=== PATIENT | male | born 1945 | race Caucasian/White ===

== ENCOUNTER 2018-01-26 11:17 | Inpatient (IN) | payer MEDICARE, OTHER ==
[~2018-01-26] VITALS: Ht 165.1 cm; Wt 66.5 kg
[~2018-01-26 11:17] MED LIST: AMOXICILLIN/CL875 MG PO; GLIPIZIDE ER5 M1 PO; LEVOTHROID125 MCG PO; LIPITOR80 M1 PO; METFORMIN1000 MG PO; OMEPRAZOLE20 M2 PO; PROAIR HFA IN
[2018-01-26 12:19] LABS: HEMATOCRIT 47.9 % (39.0-50.0); HEMOGLOBIN 16.6 g/dl (14.0-18.0); IMMATURE GRANULOCYTES 0.3 % (0.0-1.0); MEAN CORPUSCULAR HGB 30.9 pG CALC (26.0-32.0); MEAN CORPUSCULAR HGB CONC 34.7 g/L CALC (32.0-36.0); NEUT# 6.47 thou/uL (1.82-7.42); RED BLOOD COUNT 5.38 mill/uL (4.70-6.10); RED CELL DISTRI WIDTH 12.3 % (11.5-15.5)
[2018-01-26 12:35] LABS: ALBUMIN 4.1 g/dL (3.2-5.0); ALKALINE PHOSPHATASE 99 u/l (38-126); ANION GAP 19 (6-22 (CALC)); BILIRUBIN, TOTAL 0.8 mg/dL (0.0-1.4); BUN 15 mg/dL (8-23); BUN/CREATININE RATIO 18 (12-20 (CALC)); CARBON DIOXIDE 25 mmol/l (22-30); CHLORIDE 101 mmol/l (95-108); CREATININE 0.8 mg/dL (0.7-1.3); GFR > 60 ML/MIN (>=60 (CALC)); GFR FOR AFR.AMER. > 60 ML/MIN (>=60 (CALC)); POTASSIUM 4.3 mmol/l (3.5-5.1); SGOT/AST 41 u/l (19-48); SGPT/ALT 33 u/l (11-66); SODIUM 142 mmol/l (137-146)
[2018-01-26 13:01] LABS: INFLUENZA A POSITIVE (NONE DETECT); INFLUENZA B NONE DETECTED (NONE DETECT)
[2018-01-26] MEDS ORDERED: JANUVIA50 MG PO (14:27)
[2018-01-26] MEDS ORDERED: MULTI VIT PO (14:28)
[2018-01-26] MEDS ORDERED: LEVOTHYROXIN125 MCG PO (14:33)
[2018-01-26 15:00] VITALS: BP 131/81
[2018-01-26 16:10] VITALS: BP 146/75
[2018-01-26 16:41] LABS: URINE BILIRUBIN - DIPSTICK NEGATIVE (NEGATIVE); URINE BLOOD DIPSTICK LARGE (NEGATIVE); URINE COLOR YELLOW; URINE GLUCOSE - DIPSTICK 250 mg/dL (NEGATIVE); URINE KETONE 40 mg/dL (NEGATIVE); URINE LEUK ESTERASE NEGATIVE (NEGATIVE); URINE NITRITE - DIPSTICK NEGATIVE (Negative); URINE PH 5.5 (4.5-8.0); URINE PROTEIN - DIPSTICK NEGATIVE (NEG-TRACE); URINE SPECIFIC GRAVITY <=1.005; URINE UROBILINOGEN - DIPSTICK 0.2 E.U./dL (0.2)
[2018-01-26 17:00] LABS: URINE CLARITY CLEAR
[2018-01-26 17:09] LABS: URINE RBC TNTC RBC/hpf (0-5); URINE SQUAMOUS EPITHELIAL CELL FEW EPI/hpf (0-FEW)
[2018-01-26] MEDS ORDERED: OMEPRAZOLE20 M2 PO (18:35)
[2018-01-27] VITALS: BP 123/68
[2018-01-27 04:00] VITALS: BP 97/65
[2018-01-27 06:00] LABS: HEMATOCRIT 42.8 % (39.0-50.0); IMMATURE GRANULOCYTES 0.2 % (0.0-1.0); MEAN CELL VOLUME 91.6 fL CALC (80.0-100.0); MEAN CORPUSCULAR HGB CONC 33.9 g/L CALC (32.0-36.0); NEUT# 3.79 thou/uL (1.82-7.42); RED BLOOD COUNT 4.67 mill/uL (4.70-6.10); RED CELL DISTRI WIDTH 12.5 % (11.5-15.5)
[2018-01-27 06:07] LABS: HEMOGLOBIN 14.5 g/dl (14.0-18.0)
[2018-01-27 06:18] LABS: ALKALINE PHOSPHATASE 77 u/l (38-126); ANION GAP 14 (6-22 (CALC)); BILIRUBIN, TOTAL 0.6 mg/dL (0.0-1.4); BUN 11 mg/dL (8-23); BUN/CREATININE RATIO 18 (12-20 (CALC)); CARBON DIOXIDE 24 mmol/l (22-30); CHLORIDE 106 mmol/l (95-108); CREATININE 0.6 mg/dL (0.7-1.3); GFR > 60 ML/MIN (>=60 (CALC)); GFR FOR AFR.AMER. > 60 ML/MIN (>=60 (CALC)); POTASSIUM 4.1 mmol/l (3.5-5.1); SGOT/AST 37 u/l (19-48); SGPT/ALT 42 u/l (11-66); SODIUM 140 mmol/l (137-146)
[2018-01-27 06:19] LABS: ALBUMIN 3.1 g/dL (3.2-5.0); TOTAL PROTEIN 5.5 g/dL (6.3-8.2)
[2018-01-27 08:45] VITALS: BP 146/80
[2018-01-27 11:00] VITALS: BP 139/78
[2018-01-27 15:35] VITALS: BP 114/73
[2018-01-27 19:42] VITALS: BP 110/68
[2018-01-28 05:30] VITALS: BP 139/81
[2018-01-28 06:03] LABS: ANION GAP 14 (6-22 (CALC)); BUN 9 mg/dL (8-23); BUN/CREATININE RATIO 13 (12-20 (CALC)); CARBON DIOXIDE 24 mmol/l (22-30); CHLORIDE 106 mmol/l (95-108); CREATININE 0.7 mg/dL (0.7-1.3); GFR > 60 ML/MIN (>=60 (CALC)); GFR FOR AFR.AMER. > 60 ML/MIN (>=60 (CALC)); SODIUM 141 mmol/l (137-146)
[2018-01-28 06:04] LABS: HEMATOCRIT 40.9 % (39.0-50.0); HEMOGLOBIN 13.9 g/dl (14.0-18.0); IMMATURE GRANULOCYTES 0.3 % (0.0-1.0); MEAN CELL VOLUME 90.1 fL CALC (80.0-100.0); MEAN CORPUSCULAR HGB 30.6 pG CALC (26.0-32.0); NEUT# 2.16 thou/uL (1.82-7.42); RED BLOOD COUNT 4.54 mill/uL (4.70-6.10); RED CELL DISTRI WIDTH 12.4 % (11.5-15.5)
[2018-01-28 08:30] VITALS: BP 132/81
[2018-01-28 14:53] VITALS: BP 147/89
[2018-01-28 19:15] VITALS: BP 135/79
[2018-01-29 04:40] VITALS: BP 126/80
[2018-01-29 07:58] VITALS: BP 125/78
[2018-01-29] MEDS ORDERED: TAM75CAP PO (11:13)
[2018-01-29] MEDS ORDERED: ATORVASTATIN CA40 MG PO (11:13)
[2018-01-29] MEDS ORDERED: PROAIR HFA108 MCG/AC IN (11:26)
== END 2018-01-29 12:43 | disposition home or self-care (01) | DRG 195 ==
LOC: ED 11:17 → ED-I 13:16 → ED 13:52 → ICU 13:53 → MS2 01-27 10:30
PROVIDERS: Emergency Medicine; Nurse Practitioner Family; ADMIT Internal Medicine; ATTEND Internal Medicine
DX: J10.1 Influenza due to other identified influenza virus with other respiratory manifestations (principal); E11.9 Type 2 diabetes mellitus without complications; E03.9 Hypothyroidism, unspecified; I10 Essential (primary) hypertension; I25.2 Old myocardial infarction; Z87.01 Personal history of pneumonia (recurrent)

== ENCOUNTER 2018-12-01 14:25 | Emergency (ER) | payer MEDICARE, OTHER ==
[~2018-12-01] VITALS: Ht 165.1 cm; Wt 80.0 kg
[~2018-12-01 14:25] MED LIST changes: +ATORVASTATIN CA40 MG PO; +JANUVIA50 MG PO; +LEVOTHYROXIN125 MCG PO; +MULTI VIT PO; +PROAIR HFA108 MCG/AC IN; +TAM75CAP PO
[2018-12-01 15:57] VITALS: BP 160/80
== END 2018-12-01 15:57 | disposition home or self-care (01) ==
LOC: ED 14:25
DX: S20.212A Contusion of left front wall of thorax, initial encounter (principal); E11.9 Type 2 diabetes mellitus without complications; I10 Essential (primary) hypertension; E03.9 Hypothyroidism, unspecified; I25.2 Old myocardial infarction; V18.0XXA Pedal cycle driver injured in noncollision transport accident in nontraffic accident, initial encounter; Y93.55 Activity, bike riding; Y92.410 Unspecified street and highway as the place of occurrence of the external cause

== ENCOUNTER → 2019-01-26 | Outpatient (REF) | payer MEDICARE, OTHER ==
[2019-01-26 09:30] LABS: ANION GAP 13 (6-22 (CALC)); BUN 20 mg/dL (8-23); BUN/CREATININE RATIO 21 (12-20 (CALC)); CARBON DIOXIDE 30 mmol/l (22-30); CHLORIDE 101 mmol/l (95-108); GFR > 60 ML/MIN (>=60 (CALC)); GFR FOR AFR.AMER. > 60 ML/MIN (>=60 (CALC)); POTASSIUM 4.4 mmol/l (3.5-5.1); SODIUM 140 mmol/l (137-146)
[2019-01-26 09:57] LABS: TSH, 3RD GENERATION 3.73 uIU/mL (0.47 - 4.68)
== END | disposition home or self-care (01) ==
LOC: LAB 07:22
PROVIDERS: ATTEND Nurse Practitioner Family
DX: E11.9 Type 2 diabetes mellitus without complications (principal); R53.83 Other fatigue; E03.9 Hypothyroidism, unspecified

== ENCOUNTER 2021-12-17 17:42 | Emergency (ER) | payer MEDICARE, OTHER ==
[~2021-12-17] VITALS: Ht 165.1 cm; Wt 72.0 kg
[2021-12-17] MEDS ORDERED: ARICEPT PO (18:51)
[2021-12-17 19:11] LABS: HEMATOCRIT 46.2 % (39.0-50.0); HEMOGLOBIN 15.3 g/dl (14.0-18.0); IMMATURE GRANULOCYTES 0.3 % (0.0-5.0); MEAN CELL VOLUME 92.4 fL CALC (80.0-100.0); MEAN CORPUSCULAR HGB 30.6 pG CALC (26.0-32.0); MEAN CORPUSCULAR HGB CONC 33.1 g/dL CAL (32.0-36.0); NEUT# 3.87 thou/uL (1.82-7.42)
[2021-12-17 19:24] LABS: ALBUMIN 3.8 g/dL (3.2-5.0); ALKALINE PHOSPHATASE 61 u/l (38-126); ANION GAP 14 (6-22 (CALC)); BILIRUBIN, TOTAL 0.5 mg/dL (0.0-1.4); BUN 20 mg/dL (8-23); BUN/CREATININE RATIO 24 (12-20 (CALC)); CARBON DIOXIDE 26 mmol/l (22-30); CHLORIDE 100 mmol/l (95-108); CREATININE 0.8 mg/dL (0.7-1.3); GFR > 60 ML/MIN (>=60 (CALC)); GFR FOR AFR.AMER. > 60 ML/MIN (>=60 (CALC)); POTASSIUM 4.3 mmol/l (3.5-5.1); SGOT/AST 32 u/l (19-48); SODIUM 136 mmol/l (137-146)
[2021-12-17] MEDS ORDERED: PROMETHAZINE HY25 M1 PO (20:36)
[2021-12-17 20:40] VITALS: BP 174/74
== END 2021-12-17 20:52 | disposition home or self-care (01) ==
LOC: ED 17:42
PROVIDERS: Family Medicine
DX: R11.2 Nausea with vomiting, unspecified (principal); G91.9 Hydrocephalus, unspecified; I10 Essential (primary) hypertension; E11.9 Type 2 diabetes mellitus without complications; E03.9 Hypothyroidism, unspecified; I25.2 Old myocardial infarction; Z98.2 Presence of cerebrospinal fluid drainage device; Z79.84 Long term (current) use of oral hypoglycemic drugs

== ENCOUNTER 2022-01-23 00:49 | Emergency (ER) | payer MEDICARE, OTHER ==
[~2022-01-23] VITALS: Ht 165.1 cm; Wt 72.0 kg
[~2022-01-23 00:49] MED LIST changes: +ARICEPT PO; +METFORMIN HCL500 M2 PO; -METFORMIN1000 MG PO; +PROMETHAZINE HY25 M1 PO
[2022-01-23] MEDS ORDERED: CRESTOR5 MG PO (01:13)
[2022-01-23] MEDS ORDERED: TRESIBA100 UNIT/M SC (01:14)
[2022-01-23 01:38] LABS: HEMATOCRIT 45.1 % (39.0-50.0); IMMATURE GRANULOCYTES 0.8 % (0.0-5.0); MEAN CELL VOLUME 92.4 fL CALC (80.0-100.0); MEAN CORPUSCULAR HGB 30.7 pG CALC (26.0-32.0); MEAN CORPUSCULAR HGB CONC 33.3 g/dL CAL (32.0-36.0); NEUT# 2.82 thou/uL (1.82-7.42); RED BLOOD COUNT 4.88 mill/uL (4.70-6.10); RED CELL DISTRI WIDTH 12.9 % (11.5-15.5)
[2022-01-23 01:39] LABS: URINE BILIRUBIN - DIPSTICK NEGATIVE (NEGATIVE); URINE BLOOD DIPSTICK NEGATIVE (NEGATIVE); URINE COLOR YELLOW; URINE GLUCOSE - DIPSTICK 250 mg/dL (NEGATIVE); URINE KETONE NEGATIVE (NEGATIVE); URINE LEUK ESTERASE NEGATIVE (NEGATIVE); URINE PROTEIN - DIPSTICK NEGATIVE (NEG-TRACE); URINE SPECIFIC GRAVITY 1.025
[2022-01-23 01:47] LABS: URINE NITRITE - DIPSTICK NEGATIVE (Negative)
[2022-01-23 02:01] LABS: ALBUMIN 3.9 g/dL (3.2-5.0); ALKALINE PHOSPHATASE 72 u/l (38-126); ANION GAP 13 (6-22 (CALC)); BUN 15 mg/dL (8-23); BUN/CREATININE RATIO 18 (12-20 (CALC)); CARBON DIOXIDE 28 mmol/l (22-30); CHLORIDE 101 mmol/l (95-108); CREATININE 0.8 mg/dL (0.7-1.3); GFR > 60 ML/MIN (>=60 (CALC)); GFR FOR AFR.AMER. > 60 ML/MIN (>=60 (CALC)); POTASSIUM 4.4 mmol/l (3.5-5.1); SGOT/AST 30 u/l (19-48); SODIUM 137 mmol/l (137-146); TOTAL PROTEIN 6.6 g/dL (6.3-8.2)
[2022-01-23 02:02] LABS: BILIRUBIN, TOTAL 0.8 mg/dL (0.0-1.4)
[2022-01-23 02:13] LABS: MYOGLOBIN 58 ng/mL (0 - 121)
[2022-01-23 02:30] VITALS: BP 118/68
[2022-01-23] MEDS ORDERED: PROAIR HFA IN (02:36)
[2022-01-23] MEDS ORDERED: ROBITUSSIN AC10 ML PO (02:36)
[2022-01-23 02:45] VITALS: BP 132/78
[2022-01-23 03:00] VITALS: BP 125/66
[2022-01-23 03:15] VITALS: BP 138/72
[2022-01-23 03:27] VITALS: BP 138/72
--- NOTE | 2022-01-26 08:39 | NUR ---
PRELIMINARY BLOOD CULTURES SHOW GRAM POSITIVE COCCI IN 1/4 VIALS, LIKELY A CONTAMINANT. REPORTED TO DR AVILES. WILL F/U WITH FINALS.
== END 2022-01-23 03:25 | disposition home or self-care (01) ==
LOC: ED 00:49
PROVIDERS: Emergency Medicine
DX: J40 Bronchitis, not specified as acute or chronic (principal); I10 Essential (primary) hypertension; E11.9 Type 2 diabetes mellitus without complications; I25.10 Atherosclerotic heart disease of native coronary artery without angina pectoris; E03.9 Hypothyroidism, unspecified; I25.2 Old myocardial infarction; Z79.84 Long term (current) use of oral hypoglycemic drugs; Z79.4 Long term (current) use of insulin; Z20.822 Contact with and (suspected) exposure to COVID-19